=== PATIENT | female | born 1960 | race Caucasian/White ===

== ENCOUNTER 2017-11-17 17:42 | Emergency (ER) | payer MEDICAID ==
[2017-11-17] MEDS: MECLIZINE 12.5 MG TAB PO (19:45)
== END 2017-11-17 20:28 | disposition home or self-care (01) ==
LOC: FTE 20:28
DX: R42 Dizziness and giddiness (principal); I10 Essential (primary) hypertension
CPT/HCPCS: 99283; Z7502